=== PATIENT | female | born 1970 | race African-American/Black ===

== ENCOUNTER 2018-05-24 14:53 | Emergency (ER) | payer OTHER, BC, MEDICARE ==
[2018-05-24] MEDS: LIDOCAINE 1% (MDV) 10 ML INJ INFIL (16:19)
[2018-05-24] MEDS: IBUPROFEN 600 MG TAB PO (17:51)
== END 2018-05-24 17:57 | disposition home or self-care (01) ==
LOC: FTE 14:53
DX: L76.32 Postprocedural hematoma of skin and subcutaneous tissue following other procedure (principal); Z48.01 Encounter for change or removal of surgical wound dressing
CPT/HCPCS: 99283; Z7502